=== PATIENT | female | born 1960 | race Hispanic/Latino ===

== ENCOUNTER 2017-09-10 08:30 | Outpatient (CLI) | payer OTHER ==
--- NOTE | 2017-09-10 09:57 | Mammography Report ---
BILATERAL MAMMOGRAM with CAD: HISTORY: Cancer screening. Comparison study is dated August 16. FINDINGS: There are scattered fibroglandular densities (approximately 25%-50% glandular). No mass, distortion, suspicious calcification, or skin change is seen. On the left exaggerated CC lateral view, an area of apparent parenchymal asymmetry laterally is not identified on the CC or MLO projections. IMPRESSION: Negative mammogram. There is no mammographic evidence of malignancy. RECOMMENDATION: Follow-up per ACS guidelines. BI-RADS CATEGORY: 1 = Negative ACR BI-RADS MAMMOGRAPHIC CODES: 0 = Needs additional imaging evaluation; 1 = Negative; 2 = Benign; 3 = Probably benign; 4 = Suspicious; 5 = Malignant; 6 = Known biopsy-proven malignancy COMMENT: 1. Dense breast tissue, i.e., adenosis, fibrocystic changes, etc., may obscure an underlying neoplasm. 2. Approximately 10% of cancers are not detected with mammography. 3. A negative mammography report should not delay biopsy if a clinically suspicious mass is present. COMMENT: Patient follow-up letters are generated in [facility] [employer].
== END 2017-09-10 08:31 | disposition home or self-care (01) ==
LOC: SPVWC 08:30
PROVIDERS: ATTEND Obstetrics & Gynecology
DX: Z12.31 Encounter for screening mammogram for malignant neoplasm of breast (principal)
CPT/HCPCS: 77067; G0202

== ENCOUNTER 2021-08-22 09:53 | Outpatient (CLI) | payer OTHER ==
--- NOTE | 2021-08-23 11:15 | XRay Report ---
ABDOMEN AP SUPINE 1028 INDICATION: CALCULUS OF URETER N20.1 COMPARISON: None available. FINDINGS: Bowel gas pattern is unremarkable. Lower lumbar surgical changes are seen. Mild bilateral h ip degenerative changes are noted. Bilateral probable nephrolithiasis is seen, more prominent on the right. Calcifications are seen over lying the right kidney with an elongated density measuring 12 mm in the upper to midportion and 5 mm calcification overlying the lower pole. On the left overlying the mid kidney tiny punctate calcificat ions are seen. Calcifications in the right pelvis are indeterminate though probably vascular. Signer Name: Jacob Munoz MD Signed: 08/23/2021 11:11 AM Workstation Name: [email or web address]
== END 2021-08-22 09:54 | disposition home or self-care (01) ==
LOC: SPVIMAG 09:53
PROVIDERS: ATTEND Urology
DX: N20.2 Calculus of kidney with calculus of ureter (principal); M16.0 Bilateral primary osteoarthritis of hip
CPT/HCPCS: 74018